=== PATIENT | male | born 2000 | race Caucasian/White ===

== ENCOUNTER 2022-04-26 22:38 | Inpatient (IN) | payer OTHER, SELFPAY ==
[~2022-04-26 22:38] MED LIST: Iopamidol-370 76% 500 ML 1 ML ONE
[2022-04-26 22:58] LABS: #Eosinphils 0.1 thou/uL (0.0-0.7); #Lymphocytes 2.6 thou/uL (1.20-3.40); #Monocytes 0.7 thou/uL (0.11-0.59); #Neutrophils 7.5 thou/uL (1.40-6.50); %Basophils 0.2 % (0.0-1.0); %Eosinophils 0.5 % (0.0-10.0); %Lymphocytes 24.3 % (21.0-51.0); %Monocytes 6.2 % (0.0-10.0); %Neutrophils 68.7 % (42.0-75.0); Hemoglobin 16.5 g/dL (14.0-18.0); Mean Corpuscular HGB CONC 35.1 g/dL (32.0-36.0); Mean Corpuscular Hemoglobin 31.9 pg (27.0-31.0); Mean Corpuscular Volume 90.8 fl (78.0-98.0); Mean Platelet Volume 8.1 fL (7.4-10.4); Platelet Count 208 thou/uL (130-400); RBC Distribution Width 11.6 % (11.5-14.5); Red Blood Cell (RBC) Count 5.19 mill/uL (4.70-6.10); White Blood Cell (WBC) Count 10.9 thou/uL (4.8-10.8)
[2022-04-26 23:19] LABS: ALT (SGPT) 39 U/L (8-55); AST (SGOT) 25 U/L (5-34); Albumin 4.3 g/dL (3.5-5.0); Alkaline Phosphatase 62 U/L (40-110); Anion Gap 15 mmol/L (10-20); BUN (Urea Nitrogen) 20 mg/dL (8.9-20.6); Bilirubin, Total 2.1 mg/dL (0.2-1.2); Calc. Creatinine Clearance 0 mL/min (70-130); Carbon Dioxide 23 mmol/L (22-29); Chloride 105 mmol/L (98-107); Estimated GFR 94; Globulin 2.9 g/dL (2.4-3.5); Glucose 110 mg/dL (70-105); Lipase 16 U/L (8-78); Potassium 3.6 mmol/L (3.5-5.1); Protein, Total 7.2 g/dL (6.0-8.3); Sodium 139 mmol/L (136-145)
[2022-04-26] MEDS ORDERED: Ondansetron PF 4 MG/2 ML Vial ONE (23:25)
[2022-04-26] MEDS ORDERED: CEFAZOLIN 2 GM VIAL ONE (23:25)
[2022-04-26] MEDS ORDERED: Morphine 4 MG/ML VIAL ONE (23:25)
[2022-04-26] MEDS ORDERED: Ketorolac Tromethamine 30 MG/ML VIAL ONE ×2 (23:29→23:30)
[2022-04-27] MEDS ORDERED: TETANUS, DIPHTHERIA TOX,ADULT (TDVAX) 0.5 ML VIAL IM ONE (00:50)
[2022-04-27] MEDS ORDERED: Lidocaine 2% PF 5 ML VIAL ONE (00:53)
[2022-04-27] MEDS ORDERED: Morphine 4 MG/ML VIAL SLOW IVP PRN (00:55)
[2022-04-27 00:58] LABS: Bilirubin Negative (Negative); Blood, Urine Negative (Negative); Clarity Clear (Clear); Glucose, Urine (Dipstick) Normal (Negative); Ketone, Urine 20 mg/dL (Negative); Leukocyte Negative Leu/uL (Negative); Nitrite Negative (Negative); Protein, Urine (Dipstick) Negative (Neg-Trace); Specific Gravity, Urine 1.017 (1.002-1.036); Urobilinogen Normal mg/dL (Less than 2); pH, Urine 6.5 (5.0-9.0)
[2022-04-27] MEDS ORDERED: Acetaminophen/Codeine 30-300mg Tablet PO SCH (01:00)
[2022-04-27] MEDS ORDERED: Acetaminophen 325 MG TAB PO SCH ×3 (01:00→09:00)
[2022-04-27] MEDS: Sodium Chloride 0.9% 1,000 ML IV SCH ×2 (03:11→08:50)
[2022-04-27 03:35] VITALS: BMI 24.4
[2022-04-27 04:22] LABS: #Lymphocytes 1.6 thou/uL (1.20-3.40); #Monocytes 0.6 thou/uL (0.11-0.59); #Neutrophils 8.7 thou/uL (1.40-6.50); %Basophils 0.1 % (0.0-1.0); %Eosinophils 0.1 % (0.0-10.0); %Lymphocytes 14.8 % (21.0-51.0); %Monocytes 5.5 % (0.0-10.0); %Neutrophils 79.5 % (42.0-75.0); Hemoglobin 15.1 g/dL (14.0-18.0); Mean Corpuscular HGB CONC 34.6 g/dL (32.0-36.0); Mean Corpuscular Hemoglobin 31.6 pg (27.0-31.0); Mean Corpuscular Volume 91.3 fl (78.0-98.0); Mean Platelet Volume 8.3 fL (7.4-10.4); Platelet Count 166 thou/uL (130-400); RBC Distribution Width 11.6 % (11.5-14.5); Red Blood Cell (RBC) Count 4.78 mill/uL (4.70-6.10); White Blood Cell (WBC) Count 10.9 thou/uL (4.8-10.8)
[2022-04-27 04:36] LABS: Anion Gap 15 mmol/L (10-20); BUN (Urea Nitrogen) 16 mg/dL (8.9-20.6); Calc. Creatinine Clearance 149 mL/min (70-130); Carbon Dioxide 21 mmol/L (22-29); Chloride 108 mmol/L (98-107); Sodium 140 mmol/L (136-145)
[2022-04-27 04:37] LABS: Calcium 8.7 mg/dL (7.8-10.44); Estimated GFR 110; Glucose 93 mg/dL (70-105)
[2022-04-27] MEDS ORDERED: CEFAZOLIN 2 GM in Sodium Chloride 0.9% 100 ML IVPB SCH (08:00)
[2022-04-27] MEDS: Acetaminophen/Codeine 30-300mg Tablet PO SCH ×3 (08:30→20:56)
[2022-04-27] MEDS: Acetaminophen 325 MG TAB PO SCH ×3 (09:30→21:05)
[2022-04-27] MEDS: Ondansetron PF 4 MG/2 ML Vial IVP PRN ×2 (09:50→20:56)
[2022-04-27] MEDS ORDERED: Cyclobenzaprine 10 MG TAB PO PRN (13:58)
[2022-04-27] MEDS ORDERED: cefTRIAXone\\ROCEPHIN 1 GM in Sodium Chloride 0.9% 100 ML IVPB SCH (14:00)
[2022-04-27 19:40] VITALS: TEMP 97.7
[2022-04-27] MEDS ORDERED: Acetaminophen/Codeine 30-300mg Tablet PO PRN (19:46)
== END 2022-04-27 22:25 | disposition short-term general hospital (02) | DRG 84 ==
LOC: ERS 22:38 → CCU 04-27 00:50
PROVIDERS: ADMIT Surgery; ATTEND Surgery
PROC: 0HQ0XZZ Repair Scalp Skin, External Approach (ICD-10-PCS; principal; 2022-04-27)
DX: S06.6X9A Traumatic subarachnoid hemorrhage with loss of consciousness of unspecified duration, initial encounter (principal); S61.412A Laceration without foreign body of left hand, initial encounter; S02.0XXA Fracture of vault of skull, initial encounter for closed fracture; Z20.822 Contact with and (suspected) exposure to COVID-19; R40.2362 Coma scale, best motor response, obeys commands, at arrival to emergency department; R40.2142 Coma scale, eyes open, spontaneous, at arrival to emergency department; R40.2252 Coma scale, best verbal response, oriented, at arrival to emergency department; G93.89 Other specified disorders of brain; S01.01XA Laceration without foreign body of scalp, initial encounter; V49.49XA Driver injured in collision with other motor vehicles in traffic accident, initial encounter
CPT/HCPCS: 36415; 70450; 70486; 71045; 72125; 74177; 80048; 80053; 81003; 83690; 83735; 85025; 86850; 86900; 86901; 93005; G0390; J0696; J1885; J2001; J2270; J2405; J3490; J7050; Q9967